=== PATIENT | female | born 1970 | race Caucasian/White ===

== ENCOUNTER 2017-11-03 20:49 | Emergency (ER) | payer BC ==
[~2017-11-03] VITALS: Ht 160 cm; Wt 97.5 kg
[~2017-11-03 20:49] MED LIST: CIPRO250 MG PO; COL100 PO; LAC PO; LAC30L PO; LACTULOSE10 GM/152 PO; MOVIPREP PO; NORCO1 TA2 PO; ZOF4 PO; ZOFI IV
[2017-11-04 00:39] VITALS: BP 142/72
== END 2017-11-04 00:39 | disposition home or self-care (01) ==
LOC: ED 20:49
DX: M54.5 Low back pain (principal); R03.0 Elevated blood-pressure reading, without diagnosis of hypertension
CPT/HCPCS: J1885